=== PATIENT | female | born 1945 | race Caucasian/White ===

== ENCOUNTER → 2020-08-09 | Outpatient (CLI) | payer OTHER | LOC: LBRF 11:11 | DX: R19.7 Diarrhea, unspecified (principal) | CPT/HCPCS: 87045; 87046; 89055 ==

== ENCOUNTER 2021-08-22 16:44 | Emergency (ER) | payer OTHER | END 2021-08-22 20:02 | disposition home or self-care (01) | LOC: ER1 16:44 | DX: S09.90XA Unspecified injury of head, initial encounter (principal); W01.10XA Fall on same level from slipping, tripping and stumbling with subsequent striking against unspecified object, initial encounter | CPT/HCPCS: 70450; 99283 ==

== ENCOUNTER 2021-12-30 17:35 | Emergency (ER) | payer OTHER ==
[~2021-12-30] VITALS: Ht 167.6 cm; Wt 59.4 kg
[2021-12-30 21:24] LABS: RED BLOOD COUNT 4.77 M/UL (4.00-5.10); WHITE BLOOD COUNT 13.9 K/UL (4.5-11.0)
[2021-12-30] MEDS ORDERED: AMOX TR-K CLV1 EAC4 PO (21:36)
[2021-12-30 21:52] LABS: BUN/CREATININE RATIO 21 (0-10)
== END 2021-12-30 22:30 | disposition home or self-care (01) ==
LOC: ER1 17:35
PROVIDERS: Student in an Organized Health Care Education/Training Program
DX: U07.1 COVID-19 (principal)
CPT/HCPCS: 71045; 80053; 85025; 99284; M0222